=== PATIENT | male | born 1940 | race Hispanic/Latino ===

== ENCOUNTER → 2019-06-25 | Outpatient (CLI) | payer OTHER ==
[~2019-06-25] MED LIST: BLOOD PRESSURE PO
== END | disposition home or self-care (01) ==
LOC: SHCH 16:06
PROVIDERS: ATTEND Internal Medicine Cardiovascular Disease
DX: I35.0 Nonrheumatic aortic (valve) stenosis (principal)
CPT/HCPCS: 93306

== ENCOUNTER 2020-05-13 03:11 | Inpatient (IN) | payer MEDICARE, OTHER ==
[2020-05-13 04:05] LABS: BASOPHILS % (AUTO) 0.5 % (0.0-5.0); EOSINOPHILS % (AUTO) 1.8 % (0.0-8.0); LYMPHOCYTES % (AUTO) 36.6 % (21.0-51.0); MEAN CORPUSCULAR HEMOGLOBIN 29.5 pg (27.0-33.0); MEAN CORPUSCULAR HGB CONC 34.6 g/dL (32.0-36.0); MEAN CORPUSCULAR VOLUME 85.1 fL (79-99); NEUTROPHILS % (AUTO) 47.6 % (40.0-77.0); PLATELET COUNT (AUTO) 220 K/uL (130-400); RED BLOOD CELL COUNT(AUTO) 4.82 MIL/uL (4.50-6.20); RED CELL DISTRIBUTION WIDTH 13.2 % (11.0-15.5); WHITE BLOOD COUNT (AUTO) 3.9 K/uL (4.8-10.8)
[2020-05-13 04:20] LABS: CREATININE 0.8 mg/dL (0.5-1.5); POTASSIUM 4.1 mmol/L (3.5-5.1)
[2020-05-13 04:25] LABS: BILIRUBIN,TOTAL 0.3 mg/dL (0.2-1.0); TOTAL PROTEIN, SERUM 7.3 g/dL (6.0-8.3)
[2020-05-13 06:41] LABS: BILIRUBIN,URINE Negative (NEGATIVE); COLOR,URINE Yellow (YELLOW); GLUCOSE, URINE (UA) Negative (NEGATIVE); KETONES,URINE Negative (NEGATIVE); LEUKOCYTE ESTERASE ,URINE Negative (NEGATIVE); NITRATE,URINE Negative (NEGATIVE); OCCULT BLOOD,URINE Small (NEGATIVE); PROTEIN,URINE Negative (NEGATIVE); UROBILINOGEN,URINE 0.2 mg/dL (0.2-1.0)
[2020-05-13] MEDS ORDERED: BISACODYL 10 MG SUPP.RECT RC ONE (06:43)
[2020-05-13 06:48] LABS: APPEARANCE,URINE CLEAR (CLEAR)
[2020-05-13 07:23] LABS: BACTERIA,URINE Rare /HPF (None Seen); RBC,URINE 0-1 /HPF (0-1); SQUAMOUS EPITHELIAL CELL,UR Rare /HPF (0-2); WBC,URINE 0-1 /HPF (0-1)
[2020-05-13] MEDS ORDERED: FAMOTIDINE/PF 20 MG/2 ML VIAL IV SCH (09:00)
== END 2020-05-13 08:37 | disposition left against medical advice (07) | DRG 696 ==
LOC: EDH 03:11 → EDHIP 05:19
PROVIDERS: ADMIT Hospitalist; ATTEND Hospitalist
DX: R33.9 Retention of urine, unspecified (principal); Z53.29 Procedure and treatment not carried out because of patient's decision for other reasons; I10 Essential (primary) hypertension; Z80.0 Family history of malignant neoplasm of digestive organs; Z82.0 Family history of epilepsy and other diseases of the nervous system; Z82.3 Family history of stroke; Z82.49 Family history of ischemic heart disease and other diseases of the circulatory system; Z82.5 Family history of asthma and other chronic lower respiratory diseases; Z83.3 Family history of diabetes mellitus; Z80.49 Family history of malignant neoplasm of other genital organs; Z88.0 Allergy status to penicillin
CPT/HCPCS: 36415; 74176; 80053; 81001; 85025; 87088; G0378

== ENCOUNTER 2020-06-27 10:24 | Observation (INO) | payer OTHER ==
[2020-06-23 15:55] LABS: HEMATOCRIT 40.3 % (42-54); MEAN CORPUSCULAR HEMOGLOBIN 28.4 pg (27.0-33.0); MEAN CORPUSCULAR VOLUME 86.1 fL (79-99); RED BLOOD CELL COUNT(AUTO) 4.68 MIL/uL (4.50-6.20); RED CELL DISTRIBUTION WIDTH 12.9 % (11.0-15.5); WHITE BLOOD COUNT (AUTO) 4.5 K/uL (4.8-10.8)
[2020-06-23 15:56] LABS: APPEARANCE,URINE Clear (CLEAR); BILIRUBIN,URINE Negative (NEGATIVE); COLOR,URINE Yellow (YELLOW); GLUCOSE, URINE (UA) Negative (NEGATIVE); KETONES,URINE Trace mg/dL (NEGATIVE); LEUKOCYTE ESTERASE ,URINE Small (NEGATIVE); NITRATE,URINE Negative (NEGATIVE); OCCULT BLOOD,URINE Negative (NEGATIVE); PROTEIN,URINE Negative (NEGATIVE)
[2020-06-23 16:13] LABS: BACTERIA,URINE Few /HPF (None Seen); MUCUS,URINE Few LPF (None Seen); SQUAMOUS EPITHELIAL CELL,UR 0-2 /HPF (0-2)
[2020-06-23 16:14] LABS: ALBUMIN 4.1 g/dL (3.5-5.0); BILIRUBIN,TOTAL 0.6 mg/dL (0.2-1.0); CREATININE 0.8 mg/dL (0.5-1.5); POTASSIUM 4.3 mmol/L (3.5-5.1); TOTAL PROTEIN, SERUM 7.9 g/dL (6.0-8.3)
[2020-06-23 16:19] LABS: INR 1.14 (0.85-1.15); PROTHROMBIN TIME 12.3 SEC (9.6-11.6)
[2020-06-23 16:20] LABS: PARTIAL THROMBOPLASTIN TIME 27.1 SEC (26.3-35.5)
[2020-06-23] MEDS: LACTATED RINGERS 1000ML 1,000 ML IV SCH (17:15)
[2020-06-26 15:29] VITALS: BP 135/60
[2020-06-27] VITALS (21 sets, daily range): BP systolic 101–126; BP diastolic 42–70
[~2020-06-27] VITALS: Ht 172.7 cm; Wt 64.8 kg
[~2020-06-27 10:24] MED LIST changes: +AMLO-257 PO; -BLOOD PRESSURE PO; +FINA5TAB41 PO; +METO25TA6 PO; +TAMS-1 PO
[2020-06-27] MEDS: LACTATED RINGERS 1000ML 1,000 ML IV SCH ×2 (11:15→21:26)
[2020-06-27] MEDS ORDERED: SODIUM CHLORIDE 0.9% 1000ML 1,000 ML IV ONE (11:34)
[2020-06-27] MEDS: GENTAMICIN SULFATE 240 MG in SODIUM CHLORIDE 0.9% 100 ML IV SCH ×2 (11:45→13:33)
[2020-06-27] MEDS ORDERED: METOPROLOL TARTRATE 25 MG TAB PO SCH (12:45)
[2020-06-27] MEDS ORDERED: GLYCOPYRROLATE 1 MG/5 ML SYRINGE ONE (13:08)
[2020-06-27] MEDS ORDERED: DEXAMETHASONE SOD PHOSPHATE 10MG/ML 1ML VIAL ONE (13:08)
[2020-06-27] MEDS ORDERED: ROCURONIUM 10MG/1ML SYR 10 MG/ML ML ONE (13:08)
[2020-06-27] MEDS ORDERED: NEOSTIGMINE 5MG/5ML SYR IV ONE (13:08)
[2020-06-27] MEDS ORDERED: LIDOCAINE PF 2% 5ML ABBOJECT ONE (13:08)
[2020-06-27] MEDS ORDERED: SUCCINYLCHOLINE 200MG/10ML SYR ONE (13:08)
[2020-06-27] MEDS ORDERED: ONDANSETRON HCL 4 MG/2 ML VIAL ONE (13:08)
[2020-06-27] MEDS ORDERED: MIDAZOLAM HCL 1 MG/ML 2ML VIAL ONE (13:08)
[2020-06-27] MEDS ORDERED: PROPOFOL 10 MG/ML 20ML VIAL IV ONE (13:09)
[2020-06-27] MEDS ORDERED: FENTANYL CITRATE PF 50 MCG/1 ML 2ML VIAL ONE (13:10)
[2020-06-27] MEDS ORDERED: EPHEDRINE SULFATE 50 MG/ML AMPULE ONE (14:38)
[2020-06-27] MEDS ORDERED: TRANEXAMIC ACID 1000MG/10ML ONE (14:45)
[2020-06-27] MEDS ORDERED: ACETAMINOPHEN 325 MG TAB PO PRN (21:00)
[2020-06-27] MEDS ORDERED: MEPERIDINE-PF 75 MG/ML SYG IM PRN (21:00)
[2020-06-27] MEDS ORDERED: ACETAMINOPHEN-CODEINE 300/30MG TAB PO PRN (21:00)
[2020-06-27] MEDS ORDERED: ONDANSETRON HCL 4 MG/2 ML VIAL IVP PRN (21:00)
[2020-06-27] MEDS: METOPROLOL TARTRATE 25 MG TAB PO SCH ×2 (21:00→21:35)
[2020-06-28 04:08] VITALS: BP 114/53
[2020-06-28] MEDS: LACTATED RINGERS 1000ML 1,000 ML IV SCH ×2 (05:10→09:10)
[2020-06-28 05:41] LABS: BASOPHILS % (AUTO) 0.1 % (0.0-5.0); HEMATOCRIT 32.7 % (42-54); LYMPHOCYTES % (AUTO) 12.2 % (21.0-51.0); MEAN CORPUSCULAR HEMOGLOBIN 28.3 pg (27.0-33.0); MEAN CORPUSCULAR HGB CONC 33.3 g/dL (32.0-36.0); MEAN CORPUSCULAR VOLUME 84.9 fL (79-99); MONOCYTES % (AUTO) 8.8 % (3.0-13.0); NEUTROPHILS % (AUTO) 78.2 % (40.0-77.0); PLATELET COUNT (AUTO) 219 K/uL (130-400); RED BLOOD CELL COUNT(AUTO) 3.85 MIL/uL (4.50-6.20); RED CELL DISTRIBUTION WIDTH 12.9 % (11.0-15.5); WHITE BLOOD COUNT (AUTO) 6.8 K/uL (4.8-10.8)
[2020-06-28 05:55] LABS: POTASSIUM 4.5 mmol/L (3.5-5.1)
[2020-06-28 08:44] VITALS: BP 113/47
[2020-06-28] MEDS: METOPROLOL TARTRATE 25 MG TAB PO SCH (08:48)
[2020-06-28] MEDS ORDERED: TAMSULOSIN HCL 0.4 MG CAP.ER.24H PO SCH (09:00)
[2020-06-28] MEDS ORDERED: FINASTERIDE 5 MG TABLET PO SCH (09:00)
[2020-06-28] MEDS ORDERED: AMLODIPINE BESYLATE 5 MG TAB PO SCH (09:00)
[2020-06-28 11:48] VITALS: BP 132/69
[2020-06-28] MEDS ORDERED: GENTAMICIN 120 MG IN 100ML NS 100 ML IV SCH (13:00)
== END 2020-06-28 17:30 | disposition home or self-care (01) ==
LOC: DAH 10:24 → 3AH 10:25 → DAH 10:25
PROVIDERS: ADMIT Urology; ATTEND Urology
DX: C61 Malignant neoplasm of prostate (principal); Z20.822 Contact with and (suspected) exposure to COVID-19; R33.9 Retention of urine, unspecified; N35.919 Unspecified urethral stricture, male, unspecified site; N40.1 Benign prostatic hyperplasia with lower urinary tract symptoms; I10 Essential (primary) hypertension; E11.9 Type 2 diabetes mellitus without complications; Z79.899 Other long term (current) drug therapy; Z88.0 Allergy status to penicillin
CPT/HCPCS: 36415 ×2; 52344; 52601; 71046; 80048; 80053; 81001; 82948; 85025; 85027; 85610; 85730; 87088; 87426; 88305; 88342; 96361 ×2; 96365; A4215; A4221; A4222; A4223; A4346; A4354; A4358; A4663; A6260; G0378 ×29; J0330; J1100; J1580; J2001; J2250; J2405; J2704; J2710; J3010; J3490 ×3; J7030 ×2; J7120 ×6; U0003; 93005